=== PATIENT | female | born 1960 | race Caucasian/White ===

== ENCOUNTER 2016-08-12 13:49 | Emergency (ER) | payer OTHER ==
[~2016-08-12] VITALS: Ht 170.2 cm; Wt 108.9 kg
[~2016-08-12 13:49] MED LIST: ALPRAZOLAM0.5 MG PO; AUGMENTIN 875875 MG PO; FLONASE120 SPRAY/ NASB; IOPHEN C-NR 10473 ML PO; MOXIFLOXACIN H400 MG PO; PREDNISONE10 MG PO; SYNTHROID0.175 MG PO; VITAMIN D32000 I1 PO
[2016-08-12] MEDS ORDERED: MEDROL4 M2 PO (16:24)
[2016-08-12] MEDS ORDERED: HYDROCODON-ACE1 EAC2 PO (16:24)
[2016-08-12] MEDS ORDERED: CYCLOBENZAPRINE10 M1 PO (16:24)
--- NOTE | 2016-08-12 16:28 | ED NECK/BACK PAIN COMPLAINT ---
History of Present Illness General Chief Complaint: Lower Extremity Problems Stated Complaint: LOWER LEG AND BACK PAIN Source: patient Exam Limitations: no limitations Vital Signs & Intake/Output Vital Signs & Intake/Output Vital Signs Date Time Temp Pulse Resp B/P B/P Pulse O2 O2 Flow FiO2 Mean Ox Delivery Rate 08/12 1646 97.6 79 14 121/76 98 08/12 1409 97.2 72 20 114/72 97 Room Air Allergies Coded Allergies: NO KNOWN ALLERGIES (12/15/13) Reconcile Medications Alprazolam 0.25 MG TABLET 1 TAB PO PRN ANXIETY (Reported) CHOLECALCIFEROL (VITAMIN D3) (Vitamin D-3) 2,000 UNIT CAPSULE 1 SGL PO DAILY SUPPLEMENT (Reported) Cyclobenzaprine HCl 10 MG TABLET 1 TAB PO TID SPASMS Fluticasone Propionate (Flonase) 50 MCG/ACTUATION SPRAY.SUSP 2 SPRAY NASB DAILY NASAL CONGESTION GUAIFENESIN/CODEINE PHOSPHATE (Iophen-C Nr Liquid) 100 MG-10 MG/5 ML LIQUID 10 ML PO Q4H PRN COUGH/CONGESTION (Reported) Hydrocodone/Acetaminophen (Hydrocodon-Acetaminophen 5-325) 5 MG-325 MG TABLET 1-2 TAB PO Q4-6 PRN PRN pain Levothyroxine Sodium (Synthroid) 0.175 MG TAB 1 TAB PO DAILY AC THYROID ( Reported) Losartan Potassium 25 MG TABLET 1 TAB PO DAILY HEART (Reported) Methylprednisolone. (Medrol) 4 MG TAB.DS.PK 1 DP PO AD BACK PAIN 6 on day 1 then reduce by one tablet daily until gone MOXIFLOXACIN HCL (Moxifloxacin Hydrochloride) 400 MG TABLET 1 TAB PO DAILY UNKNOWN (Reported) Prednisone 10 MG TABLET 0 TAB PO DAILY PRN BREATHING (Reported) 3 TABS TWICE A DAY X 3 DAYS 2 TABS TWICE A DAY X 3 DAYS 1 TABS TWICE A DAY X 3 DAYS 1/2 TAB TWICE A DAY X 2 DAYS Triage Note: C/O LEFT LOWER BACK PAIN TODAY. PT STATES PAIN COMES AND GOES. STATES EARLIER TODAY HER LEFT LEG GOT NUMB BUT HAS SINCE RESOLVED Triage Nurses Notes Reviewed? yes Onset: Abrupt Duration: day(s): (few), intermittent Timing: recent history Quality/Severity: moderate, severe Location: lumbar spine Method of Injury: unknown Loss of Consciousness: no loss of consciousness HPI: 56-year-old female comes into emergency room with complaints of left lower back pain has been going on intermittently for the past few days. Pain is sharp. Continuous. Patient had some radiation down her leg today. Patient reports that the pain initially started on Monday when she was bending over at [employer] to get something off a bottom shelf. Patient felt a pull in her back. Pain had gotten better and then got worse again today. Some radiation tingling and numbness down the left leg. Denies any urinary bowel dysfunction. Denies any falls. Denies any other associated symptoms. (ROXANNE MANDEL) Past History Travel History Traveled to [place] past 21 day No Medical History Any Pertinent Medical History? see below for history Endocrine: hypothyroidism Tetanus Vaccine: 08/24/15 Surgical History Surgical History: N Psychosocial History What is your primary language Chilean Tobacco Use: Quit >30 days ago ETOH Use: denies use Illicit Drug Use: denies illicit drug use Family History Hx Contributory? No (ROXANNE MANDEL) Review of Systems Review of Systems Constitutional: Reports: no symptoms. Eyes: Reports: no symptoms. Ears, Nose, Throat, Mouth: Reports: no symptoms. Respiratory: Reports: no symptoms. Cardiovascular: Reports: no symptoms. Gastrointestinal/Abdominal: Reports: no symptoms. Musculoskeletal: Reports: see HPI. Skin: Reports: no symptoms. Neurological/Psychological: Reports: no symptoms. All Other Systems: Reviewed and Negative (ROXANNE MANDEL) Physical Exam Physical Exam General Appearance: well developed/nourished, mild distress Head: atraumatic Eyes: Bilateral: normal appearance. Ears, Nose, Throat, Mouth: hearing grossly normal, moist mucous membrane Neck: normal inspection Respiratory: no respiratory distress Cardiovascular: regular rate/rhythm Back: normal inspection, left lower paraspinal tenderness Extremities: normal range of motion Motor: Deficit L4 Right: No Deficit L4 Left: No Deficit L5 Right: No Deficit L5 Left: No Deficit S1 Right: No Deficit S1 Right: No Neurologic/Psych: awake, alert, oriented x 3, normal mood/affect Skin: intact, normal color, warm/dry Comments: Gross sensation intact in lower legs (ROXANNE MANDEL) Progress Differential Diagnosis: C spine injury, carotid dissection, cauda equina syn, herniated disc, myofascial strain, pyelo/UTI, sciatica, spinal cord inj, thoracic outlet syn, T/L spine injury, ureterolithiasis Plan of Care: 08/12/2016 4:54:17 PM Patient's pain is all reproducible and lower back. Pain is worse with range of motion. No evidence of radiculopathy on exam. No urinary bowel dysfunction. No genital numbness. No weakness in the lower extremity. Normal dorsiflexion of great toe. Gross sensation intact. No saddle paresthesia. Considered things like cauda equina have a do not feel that patient's symptoms at this point in time are consistent with this diagnosis. . Patient has no other symptoms that could be attributing to back pain. No abdominal pain, shortness of breath, chest pain. Patient is to follow-up with primary care doctor for recheck. If symptoms persist patient should be considered for an MRI of the lower back. Patient is to return immediately if any nausea vomiting, fever, weakness in the legs, urinary bowel dysfunction, abdominal pain, chest pain, shortness of breath. No weight loss. No night sweats. Pain is consistent with musculoskeletal pain due to the patient's symptoms mentioned above. (CLIFF KEY,ROXANNE) Departure Departure Disposition: HOME OR SELF CARE Condition: Stable Clinical Impression Primary Impression: Strain of muscle, fascia and tendon of lower back, initial encounter Referrals: JOHAN LAWRENCE MD (PCP/Family) Additional Instructions: Take Vicodin, Flexeril, Medrol Dosepak as prescribed. Follow-up with primary care doctor. Return if any concerns worsening symptoms. Please go over all results of today's visit with your primary care doctor. Contact your primary care doctor to let them know you were here in the emergency room. There may be nonspecific findings which may not be related to your visit today here in the emergency room but may require further evaluation and chronic monitoring by your primary care doctor. If you had a laceration today the chance of foreign body always remains. You should follow-up with your primary care doctor for recheck in 3-5 days for a wound check. If you had an x-ray done there is a chance that a fracture could have been missed on initial read and you should follow-up with your primary care doctor for repeat x-rays if symptoms persist. If your blood pressure was elevated here in the emergency room please have rechecked by her primary care doctor within the next 48 hours by your primary care doctor. If you were prescribed a narcotic here in the emergency room or any type of controlled substances you're not allowed to drive while taking this medication or operate any type of heavy machinery. Narcotics can make you feel lightheaded dizziness nausea and can cause constipation. 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 Thank you for choosing [facility] emergency room. Please return to the emergency room immediately if you have any other concerns worsening of symptoms. Departure Forms: Customer Survey General Discharge Information Prescriptions: Current Visit Scripts Hydrocodone/Acetaminophen (Hydrocodon-Acetaminophen 5-325) 1-2 TAB PO Q4-6 PRN PRN pain #10 TAB Cyclobenzaprine HCl 1 TAB PO TID #20 TAB Methylprednisolone. (Medrol) 1 DP PO AD #1 DP 6 on day 1 then reduce by one tablet daily until gone (ROXANNE MANDEL) PA/TECHNICAL STAFF ENGINEER Co-Sign Statement Statement: ED Attending supervision documentation- [] I saw and evaluated the patient. I have also reviewed all the pertinent lab results and diagnostic results. I agree with the findings and the plan of care as documented in the PA's/TECHNICAL STAFF ENGINEER's documentation. [X] I have reviewed the ED Record and agree with the PA's/TECHNICAL STAFF ENGINEER's documentation. [] Additions or exceptions (if any) to the PAs/TECHNICAL STAFF ENGINEER's note and plan are summarized below: [] (CATARINO QUINONES DO)
[2016-08-12 16:46] VITALS: BP 121/76
[2016-08-12] MEDS ORDERED: LOSARTAN POTASS25 M1 PO (16:46)
== END 2016-08-12 16:46 ==
LOC: ERH 13:49
DX: S39.012A Strain of muscle, fascia and tendon of lower back, initial encounter (principal); X50.9XXA Other and unspecified overexertion or strenuous movements or postures, initial encounter; Y93.89 Activity, other specified; Y92.512 Supermarket, store or market as the place of occurrence of the external cause